=== PATIENT | female | born 1970 | race Caucasian/White ===

== ENCOUNTER 2020-11-28 08:53 | Day surgery (SDC) | payer OTHER ==
[~2020-11-28] VITALS: Ht 167.6 cm; Wt 56.7 kg
[2020-11-28] MEDS ORDERED: fentaNYL citrate 0.05 MG/ML VIAL ONE (10:04)
[2020-11-28] MEDS ORDERED: MIDAZOLAM 5 MG/5 ML VIAL ONE (10:04)
[2020-11-28] MEDS ORDERED: diphenhydrAMINE 50 MG/ML VIAL ONE (10:04)
[2020-11-28] MEDS ORDERED: MIDAZOLAM 2 MG/2 ML VIAL ONE (10:04)
[2020-11-28] MEDS ORDERED: LIDOCAINE 2% 100 MG/5 ML UJET TP ONE (10:05)
[2020-11-28] MEDS ORDERED: MIDAZOLAM 2 MG/2 ML VIAL IVP ONE (12:45)
[2020-11-28] MEDS ORDERED: fentaNYL citrate 0.05 MG/ML VIAL IVP ONE (12:45)
== END 2020-11-28 11:50 | disposition home or self-care (01) ==
LOC: MDS 08:53 → MMU 08:54 → MDS 11:50
PROVIDERS: ATTEND Internal Medicine Gastroenterology
DX: K92.1 Melena (principal); D12.0 Benign neoplasm of cecum; K64.8 Other hemorrhoids; K64.4 Residual hemorrhoidal skin tags; K62.89 Other specified diseases of anus and rectum; Z79.899 Other long term (current) drug therapy
CPT/HCPCS: 45380; 88305; J2250; J3010; J7030; J1200

== ENCOUNTER 2020-12-12 06:32 | Day surgery (SDC) | payer OTHER ==
[~2020-12-12] VITALS: Ht 167.6 cm; Wt 55.3 kg
[2020-12-12] MEDS ORDERED: diphenhydrAMINE 50 MG/ML VIAL ONE (09:14)
[2020-12-12] MEDS ORDERED: MIDAZOLAM 2 MG/2 ML VIAL ONE (09:14)
[2020-12-12] MEDS ORDERED: LIDOCAINE 2% 100 MG/5 ML UJET TP ONE ×2 (09:15→12:20)
[2020-12-12] MEDS ORDERED: fentaNYL citrate 0.05 MG/ML VIAL ONE (09:15)
[2020-12-12] MEDS ORDERED: MIDAZOLAM 2 MG/2 ML VIAL IVP ONE (12:20)
== END 2020-12-12 10:15 | disposition short-term general hospital (02) ==
LOC: MDS 06:32 → MMU 06:33 → MDS 10:15
PROVIDERS: ATTEND Internal Medicine Gastroenterology
DX: K64.9 Unspecified hemorrhoids (principal); K62.89 Other specified diseases of anus and rectum; K92.1 Melena; Z79.899 Other long term (current) drug therapy
CPT/HCPCS: 45350; 81025; J2250; J3010; J1200

== ENCOUNTER 2021-01-22 10:35 | Outpatient (CLI) | payer OTHER, SELFPAY | END 2021-01-22 23:59 | disposition home or self-care (01) | LOC: MLB 10:35 → EDSTATUS 01-25 08:50 | PROVIDERS: ATTEND Surgery | DX: Z01.818 Encounter for other preprocedural examination (principal); K64.9 Unspecified hemorrhoids; K60.2 Anal fissure, unspecified; M41.9 Scoliosis, unspecified | CPT/HCPCS: 71045 ==

== ENCOUNTER 2021-02-05 07:11 | Day surgery (SDC) | payer OTHER ==
[~2021-02-05] VITALS: Ht 167.6 cm; Wt 55.3 kg
[2021-02-05] MEDS ORDERED: LIDOCAINE 1% 500 MG/50 ML VIAL ONE (08:01)
[2021-02-05] MEDS ORDERED: BUPIVACAINE-MPF/EPI 0.25% 30 ML VIAL INJ ONE (08:01)
[2021-02-05] MEDS ORDERED: ONDANSETRON 4 MG/2 ML VIAL ONE (08:40)
[2021-02-05] MEDS ORDERED: KETOROLAC 30 MG/ML VIAL ONE (08:40)
[2021-02-05] MEDS ORDERED: DEXAMETHASONE 4 MG/ML VIAL ONE (08:40)
[2021-02-05] MEDS ORDERED: PROPOFOL 200 MG/20 ML VIAL IV ONE (08:40)
[2021-02-05] MEDS ORDERED: MEPERIDINE 50 MG/ML SYR ONE (08:40)
[2021-02-05] MEDS ORDERED: SEVOFLURANE 250 ML BTL INH ONE (08:40)
[2021-02-05] MEDS ORDERED: GELATIN SPONGE 100 1 SPG TP ONE (08:46)
[2021-02-05] MEDS ORDERED: ONDANSETRON 4 MG/2 ML VIAL IVP PRN (09:20)
[2021-02-05] MEDS ORDERED: LACTATED RINGERS 1,000 ML IV SCH (09:20)
[2021-02-05] MEDS ORDERED: HYDROmorphone 1 MG/ML AMP IVP PRN (09:20)
[2021-02-05] MEDS ORDERED: MEPERIDINE 25 MG/ML SYR IVP PRN (09:20)
== END 2021-02-05 11:15 | disposition home or self-care (01) ==
LOC: MMU 07:11 → MDS 07:11
PROVIDERS: ATTEND Surgery
DX: K60.2 Anal fissure, unspecified (principal); K64.4 Residual hemorrhoidal skin tags; K64.3 Fourth degree hemorrhoids; K64.2 Third degree hemorrhoids; K64.8 Other hemorrhoids; Z79.899 Other long term (current) drug therapy
CPT/HCPCS: 46250; 81025; 88304; J1100; J1885; J2001; J2175; J2405; J2704; J3490; J7120